=== PATIENT | female | born 1995 | race African-American/Black ===

== ENCOUNTER 2017-12-05 16:44 | Emergency (ER) | payer OTHER, SELFPAY ==
[2017-12-05 18:50] LABS: #Lymphocytes 2.3 thou/uL (1.20-3.40); #Monocytes 0.6 thou/uL (0.11-0.59); #Neutrophils 5.9 thou/uL (1.40-6.50); %Basophils 0.4 % (0.0-1.0); %Eosinophils 0.5 % (0.0-10.0); %Lymphocytes 25.5 % (28.0-48.0); %Monocytes 6.6 % (0.0-4.0); %Neutrophils 66.9 % (31.0-61.0); Hemoglobin 11.7 g/dL (12.0-16.0); Mean Corpuscular HGB CONC 31.1 g/dL (32.0-36.0); Mean Corpuscular Volume 83.8 fl (77.0-87.0); Mean Platelet Volume 8.2 fL (7.4-10.4); Platelet Count 363 thou/uL (130-400); RBC Distribution Width 13.8 % (11.5-14.5); Red Blood Cell (RBC) Count 4.51 mill/uL (4.00-5.20); White Blood Cell (WBC) Count 8.9 thou/uL (4.8-10.8)
[2017-12-05 19:06] LABS: ALT (SGPT) 14 U/L (8-55); AST (SGOT) 17 U/L (5-34); Acetaminophen Less than 6.0 mcg/mL (10.0-30.0); Albumin 4.5 g/dL (3.5-5.0); Alcohol Less than 10 mg/dL (Less than 10); Alkaline Phosphatase 65 U/L (40-150); Anion Gap 11 mmol/L (10-20); BUN (Urea Nitrogen) 12 mg/dL (7.0-18.7); Bilirubin, Total 0.2 mg/dL (0.2-1.2); CK (CPK) 74 U/L (29-168); Calc. Creatinine Clearance 0 mL/min (70-130); Calcium 10.1 mg/dL (7.8-10.44); Carbon Dioxide 27 mmol/L (22-29); Chloride 105 mmol/L (98-107); Estimated GFR-MDRD 86; Globulin 3.8 g/dL (2.4-3.5); Glucose 78 mg/dL (70-105); Potassium 4.3 mmol/L (3.5-5.1); Protein, Total 8.3 g/dL (6.0-8.3); Salicylate Less than 8.0 mg/dL (15.0-30.0); Sodium 139 mmol/L (136-145)
[2017-12-05 19:58] LABS: Bilirubin Negative (Negative); Blood, Urine Negative (Negative); Clarity CLEAR (Clear); Glucose, Urine (Dipstick) Negative (Negative); Leukocyte Trace (Negative); Nitrite Negative (Negative); Protein, Urine (Dipstick) Negative (Neg-Trace); Specific Gravity, Urine 1.024 (1.002-1.036); Urobilinogen 0.2 mg/dL (0.2-1.0); pH, Urine 5.5 (5.0-9.0)
[2017-12-05 19:59] LABS: Pregnancy Test - Urine (BHCG) Negative (Negative); Pregu Control Background? CLEAR/WHITE (CLR/WHITE); Pregu Control Bar Appear? YES (CONTROL BAR); Specific Gravity 1.024 (1.002-1.036)
[2017-12-05 20:02] LABS: Bacteria/HPF None Seen HPF (None Seen); Hyaline Casts/LPF 0-3 HYALINE CAST LPF (0-3 Hyaline); RBC/HPF 0-3 HPF (0-3); Squamous Epithelial None Seen HPF (0-3); WBC/HPF 0-3 HPF (0-3)
[2017-12-05 20:11] LABS: Amphetamine Not Detected (NotDetected); Barbiturates Screen Not Detected (NotDetected); Benzodiazepine Screen Not Detected (NotDetected); Cocaine Metabolite Screen Not Detected (NotDetected); Medtox Control Line Valid? VALID (VALID); Medtox Reader # READER 4; Methadone Not Detected (NotDetected); Methamphetamine Not Detected (NotDetected); Opiate Screen Not Detected (NotDetected); Oxycodone Screen Not Detected (NotDetected); Phencyclidine (PCP) Not Detected (NotDetected); THC/Cannabinoid Screen Detected (NotDetected); Tricyclic Screen Not Detected (NotDetected)
== END 2017-12-05 22:25 | disposition home or self-care (01) ==
LOC: ERS 16:44
DX: F43.10 Post-traumatic stress disorder, unspecified (principal); F41.9 Anxiety disorder, unspecified
CPT/HCPCS: 36415; 80053; 80306; 80307; 81003; 81015; 81025; 82550; 84443; 85025; 99283

== ENCOUNTER 2018-07-04 14:22 | Emergency (ER) | payer SELFPAY ==
[2018-07-04 15:44] LABS: #Eosinphils 0.1 thou/uL (0.0-0.7); #Lymphocytes 2.4 thou/uL (1.20-3.40); #Monocytes 1.1 thou/uL (0.11-0.59); #Neutrophils 7.8 thou/uL (1.40-6.50); %Basophils 0.2 % (0.0-1.0); %Eosinophils 0.8 % (0.0-10.0); %Lymphocytes 21.4 % (21.0-51.0); %Monocytes 9.3 % (0.0-10.0); %Neutrophils 68.3 % (42.0-75.0); Hemoglobin 12.5 g/dL (12.0-16.0); Mean Corpuscular Hemoglobin 26.8 pg (27.0-31.0); Mean Corpuscular Volume 86.2 fL (78.0-98.0); Mean Platelet Volume 8.6 fL (7.4-10.4); Platelet Count 299 thou/uL (130-400); RBC Distribution Width 14.5 % (11.5-14.5); Red Blood Cell (RBC) Count 4.67 mill/uL (4.20-5.40); White Blood Cell (WBC) Count 11.4 thou/uL (4.8-10.8)
[2018-07-04 16:06] LABS: ALT (SGPT) 11 U/L (8-55); AST (SGOT) 18 U/L (5-34); Albumin 4.5 g/dL (3.5-5.0); Alkaline Phosphatase 67 U/L (40-150); Anion Gap 11 mmol/L (10-20); BUN (Urea Nitrogen) 11 mg/dL (7.0-18.7); Bilirubin, Total 0.3 mg/dL (0.2-1.2); Calc. Creatinine Clearance 0 mL/min (70-130); Calcium 9.7 mg/dL (7.8-10.44); Carbon Dioxide 26 mmol/L (22-29); Chloride 107 mmol/L (98-107); Estimated GFR-MDRD Greater than 90; Globulin 3.8 g/dL (2.4-3.5); Glucose 75 mg/dL (70-105); Potassium 4.2 mmol/L (3.5-5.1); Protein, Total 8.3 g/dL (6.0-8.3); Sodium 140 mmol/L (136-145)
[2018-07-04 17:34] LABS: Bilirubin Negative (Negative); Blood, Urine Negative (Negative); Clarity CLEAR (Clear); Glucose, Urine (Dipstick) Negative (Negative); Leukocyte Negative (Negative); Nitrite Negative (Negative); Protein, Urine (Dipstick) Negative (Neg-Trace); Specific Gravity, Urine 1.011 (1.002-1.036)
[2018-07-04 17:36] LABS: Pregnancy Test - Urine (BHCG) Negative (Negative); Pregu Control Background? CLEAR/WHITE (CLR/WHITE); Pregu Control Bar Appear? YES (CONTROL BAR); Specific Gravity 1.011 (1.002-1.036)
--- NOTE | 2018-07-04 17:57 | ULT ---
TRANSABDOMINAL PELVIC ULTRASOUND: 07/04/18 INDICATION: History of pelvic pain. FINDINGS: The uterus measures 5.9 x 2.5 x 4 cm. Endometrial stripe measures 4 mm. Right ovary measures 2.7 x 1.6 x 2 cm. Spectral doppler evaluation demonstrates normal flow to the ri ght ovary. Left ovary measures 1.5 x 2.7 x 1.2 cm. Spectral doppler evaluation of the left ovary demonstrates no rmal flow. No free fluid is evident. IMPRESSION: No acute abnormality. POS: TERI
== END 2018-07-04 18:16 | disposition home or self-care (01) ==
LOC: ERS 14:22
DX: R10.33 Periumbilical pain (principal); R11.0 Nausea; F41.9 Anxiety disorder, unspecified
CPT/HCPCS: 36415; 76856; 80053; 81003; 81025; 85025

== ENCOUNTER 2019-05-15 09:27 | Emergency (ER) | payer SELFPAY ==
[2019-05-15 10:18] LABS: #Lymphocytes 2.2 thou/uL (1.20-3.40); #Monocytes 0.9 thou/uL (0.11-0.59); #Neutrophils 7.3 thou/uL (1.40-6.50); %Basophils 0.4 % (0.0-1.0); %Eosinophils 0.3 % (0.0-10.0); %Monocytes 8.1 % (0.0-10.0); %Neutrophils 70.1 % (42.0-75.0); Hemoglobin 12.7 g/dL (12.0-16.0); Mean Corpuscular HGB CONC 31.9 g/dL (32.0-36.0); Mean Corpuscular Hemoglobin 27.5 pg (27.0-31.0); Mean Corpuscular Volume 86.1 fL (78.0-98.0); Platelet Count 253 thou/uL (130-400); RBC Distribution Width 14.2 % (11.5-14.5); Red Blood Cell (RBC) Count 4.63 mill/uL (4.20-5.40); White Blood Cell (WBC) Count 10.4 thou/uL (4.8-10.8)
[2019-05-15 10:29] LABS: BHCG - Serum Negative (NEGATIVE); Pregs Control Background? CLEAR/WHITE (CLR/WHITE); Pregs Control Bar Appear? YES (CONTROL BAR)
[2019-05-15] MEDS ORDERED: Morphine 4 MG/ML VIAL ONE (10:37)
[2019-05-15] MEDS ORDERED: Ondansetron PF 4 MG/2 ML Vial ONE (10:37)
[2019-05-15 10:38] LABS: Bilirubin Negative (Negative); Blood, Urine 3+ (Negative); Clarity Turbid (Clear); Glucose, Urine (Dipstick) Normal (Negative); Leukocyte 25 Leu/uL (Negative); Nitrite Negative (Negative); Protein, Urine (Dipstick) 100 mg/dL (Neg-Trace); RBC/HPF Greater than 50 HPF (0-3); Urobilinogen 3 mg/dL (Less than 2)
[2019-05-15 10:44] LABS: ALT (SGPT) 12 U/L (8-55); AST (SGOT) 17 U/L (5-34); Albumin 4.7 g/dL (3.5-5.0); Alkaline Phosphatase 62 U/L (40-150); Anion Gap 14 mmol/L (10-20); BUN (Urea Nitrogen) 14 mg/dL (7.0-18.7); Bilirubin, Total 0.3 mg/dL (0.2-1.2); Calc. Creatinine Clearance 0 mL/min (70-130); Calcium 10.1 mg/dL (7.8-10.44); Carbon Dioxide 23 mmol/L (22-29); Chloride 108 mmol/L (98-107); Estimated GFR-MDRD 81; Globulin 3.2 g/dL (2.4-3.5); Glucose 97 mg/dL (70-105); Lipase 44 U/L (8-78); Potassium 3.4 mmol/L (3.5-5.1); Protein, Total 7.9 g/dL (6.0-8.3); Sodium 142 mmol/L (136-145)
[2019-05-15 10:46] LABS: Bacteria/HPF 2+ HPF (None Seen)
[2019-05-15 10:47] LABS: Calcium Oxalate Crystals Rare HPF (None Seen)
--- NOTE | 2019-05-15 10:54 | CT ---
CT of abdomen and pelvis: 05/15/2019 COMPARISON: None HISTORY: Abdominal pain TECHNIQUE: Axial CT imaging at 5 mm intervals from lung bases through pubic symphysis without contras t. Coronal reformatted imaging obtained. FINDINGS: Lack of contrast media limits assessment of the viscera, bowel, vascular structures, and fo r lymphadenopathy. The imaged lung bases appear unremarkable. No free intraperitoneal air noted. There is a low-density lesion within the anterior aspect of the left lobe of the liver measuring 2.9 cm. Hounsfield units demonstrate soft tissue attenuation. Limited assessment of the gallbladder appears grossly unremarkable. The spleen, pancreas, adrenal gla nds, and kidneys demonstrate no acute findings. No nephrolithiasis or hydronephrosis is noted on either side. Limited assessment of the bowel without oral contrast media appears grossly unremarkable. The appendi x is within normal limits. Review of the osseous structures demonstrates no worrisome lytic or blastic bone lesions. IMPRESSION: No nephrolithiasis or obstructive uropathy. 2.9 cm mass within the left lobe of the liver for which a follow-up nonemergent MRI of the abdomen is advised MELINDA Sheppard
[2019-05-19 18:22] LABS: Chlamydia by PCR Not Detected (NotDetected); GC by PCR Not Detected (NotDetected)
== END 2019-05-15 13:11 | disposition home or self-care (01) ==
LOC: ERS 09:27
DX: N12 Tubulo-interstitial nephritis, not specified as acute or chronic (principal); F41.9 Anxiety disorder, unspecified
CPT/HCPCS: 36415; 74176; 80053; 81003; 81015; 83605; 83690; 84703; 85025; 87480; 87491; 87510; 87591; 87660; 94760; 96361; 96374; 96375; J2270; J2405

== ENCOUNTER 2020-10-01 10:39 | Emergency (ER) | payer SELFPAY ==
[2020-10-01 18:03] LABS: SARS-CoV-2 PCR by NAA Not Detected (NotDetected)
== END 2020-10-01 11:12 | disposition home or self-care (01) ==
LOC: ERS 10:39
DX: R43.9 Unspecified disturbances of smell and taste (principal); R05 Cough; R68.83 Chills (without fever); Z20.822 Contact with and (suspected) exposure to COVID-19
CPT/HCPCS: 87635; 99283; U0003; U0005

== ENCOUNTER 2020-11-17 21:46 | Emergency (ER) | payer SELFPAY ==
[2020-11-17 22:24] LABS: #Basophils 0.1 thou/uL (0.0-0.2); #Eosinphils 0.1 thou/uL (0.0-0.7); #Lymphocytes 3.6 thou/uL (1.20-3.40); #Monocytes 1.1 thou/uL (0.11-0.59); #Neutrophils 7.8 thou/uL (1.40-6.50); %Basophils 0.7 % (0.0-1.0); %Eosinophils 0.8 % (0.0-10.0); %Lymphocytes 28.4 % (21.0-51.0); %Monocytes 8.8 % (0.0-10.0); %Neutrophils 61.3 % (42.0-75.0); Hemoglobin 9.5 g/dL (12.0-16.0); Mean Corpuscular HGB CONC 30.8 g/dL (32.0-36.0); Mean Corpuscular Volume 78.1 fL (78.0-98.0); Platelet Count 256 thou/uL (130-400); RBC Distribution Width 14.3 % (11.5-14.5); Red Blood Cell (RBC) Count 3.94 mill/uL (4.20-5.40); White Blood Cell (WBC) Count 12.6 thou/uL (4.8-10.8)
[2020-11-17 22:36] LABS: BHCG - Serum Negative (NEGATIVE); Pregs Control Background? CLEAR/WHITE (CLR/WHITE); Pregs Control Bar Appear? YES (CONTROL BAR)
[2020-11-17 22:39] LABS: ALT (SGPT) 13 U/L (8-55); AST (SGOT) 19 U/L (5-34); Albumin 4.3 g/dL (3.5-5.0); Alkaline Phosphatase 62 U/L (40-110); Anion Gap 14 mmol/L (10-20); BUN (Urea Nitrogen) 12 mg/dL (7.0-18.7); Bilirubin, Total 0.2 mg/dL (0.2-1.2); Calc. Creatinine Clearance 0 mL/min (70-130); Carbon Dioxide 22 mmol/L (22-29); Chloride 105 mmol/L (98-107); Globulin 3.4 g/dL (2.4-3.5); Glucose 138 mg/dL (70-105); Protein, Total 7.7 g/dL (6.0-8.3); Sodium 137 mmol/L (136-145)
== END 2020-11-17 23:02 | disposition home or self-care (01) ==
LOC: ERS 21:46
DX: R56.9 Unspecified convulsions (principal)
CPT/HCPCS: 36415; 80053; 84146; 84703; 85025; 93005

== ENCOUNTER 2022-01-31 23:34 | Emergency (ER) | payer SELFPAY ==
[2022-02-01] MEDS ORDERED: Haloperidol Lactate 5 MG/ML VIAL ONE (00:30)
[2022-02-01] MEDS ORDERED: Mag-Al 1200 mg/1200 mg/30 ML UDCUP ONE (00:39)
[2022-02-01] MEDS ORDERED: Lidocaine Viscous Sol 2% 15 ml UD Cup ONE (00:39)
[2022-02-01 01:27] LABS: Bilirubin Negative (Negative); Blood, Urine Negative (Negative); Clarity Clear (Clear); Glucose, Urine (Dipstick) Normal (Negative); Ketone, Urine 150 mg/dL (Negative); Leukocyte Negative Leu/uL (Negative); Nitrite Negative (Negative); Protein, Urine (Dipstick) 20 mg/dL (Neg-Trace); pH, Urine 6.5 (5.0-9.0)
[2022-02-01 01:29] LABS: Pregnancy Test - Urine (BHCG) Negative (Negative); Pregu Control Background? CLEAR/WHITE (CLR/WHITE); Pregu Control Bar Appear? YES (CONTROL BAR)
[2022-02-01] MEDS ORDERED: Ondansetron ODT 8 MG TAB ONE (01:33)
== END 2022-02-01 02:14 | disposition home or self-care (01) ==
LOC: ERS 23:34
DX: R11.0 Nausea (principal); R56.9 Unspecified convulsions
CPT/HCPCS: 81003; 81025; 96372; 99284; J1630; Q0162

== ENCOUNTER 2022-12-24 06:05 | Emergency (ER) | payer SELFPAY ==
[2022-12-24] MEDS ORDERED: Ondansetron ODT 4 MG TAB ONE (06:10)
== END 2022-12-24 06:25 | disposition left against medical advice (07) ==
LOC: ERS 06:05
DX: Z53.29 Procedure and treatment not carried out because of patient's decision for other reasons (principal)
CPT/HCPCS: Q0162

== ENCOUNTER 2022-12-26 14:00 | Emergency (ER) | payer MEDICAID, SELFPAY ==
[2022-12-26] MEDS ORDERED: Promethazine 25 MG TAB ONE (14:26)
[2022-12-26] MEDS ORDERED: Promethazine HCl 6.25 MG in Sodium Chloride 0.9% 50 ML IVPB SCH (14:45)
== END 2022-12-26 16:13 | disposition home or self-care (01) ==
LOC: ERS 14:00
DX: R11.2 Nausea with vomiting, unspecified (principal)
CPT/HCPCS: 96361; 96365; J2550; Q0169

== ENCOUNTER 2022-12-27 04:02 | Emergency (ER) | payer SELFPAY ==
[2022-12-27] MEDS ORDERED: diphenhydrAMINE 50 MG/ML VIAL ONE (04:43)
[2022-12-27] MEDS ORDERED: Ondansetron PF 4 MG/2 ML Vial ONE (04:43)
[2022-12-27] MEDS ORDERED: Haloperidol Lactate 5 MG/ML VIAL ONE (04:43)
[2022-12-27] MEDS ORDERED: Metoclopramide HCl 10 MG/2 ML VIAL ONE (04:43)
[2022-12-27 05:04] LABS: #Lymphocytes 1.7 thou/uL (1.20-3.40); #Monocytes 1.1 thou/uL (0.11-0.59); #Neutrophils 11.4 thou/uL (1.40-6.50); %Basophils 0.1 % (0.0-1.0); %Eosinophils 0.3 % (0.0-10.0); %Lymphocytes 11.6 % (21.0-51.0); %Monocytes 7.5 % (0.0-10.0); %Neutrophils 80.5 % (42.0-75.0); Hemoglobin 12.7 g/dL (12.0-16.0); Mean Corpuscular HGB CONC 31.3 g/dL (32.0-36.0); Mean Corpuscular Hemoglobin 27.5 pg (27.0-31.0); Mean Corpuscular Volume 87.9 fl (78.0-98.0); Mean Platelet Volume 9.4 fL (7.4-10.4); Platelet Count 217 10x3/uL (130-400); Red Blood Cell (RBC) Count 4.61 mill/uL (4.20-5.40); White Blood Cell (WBC) Count 14.2 10x3/uL (4.8-10.8)
[2022-12-27 05:08] LABS: BHCG - Serum Negative (NEGATIVE); Pregs Control Background? CLEAR/WHITE (CLR/WHITE); Pregs Control Bar Appear? YES (CONTROL BAR)
[2022-12-27 05:34] LABS: ALT (SGPT) 18 U/L (8-55); AST (SGOT) 21 U/L (5-34); Albumin 4.2 g/dL (3.5-5.0); Alkaline Phosphatase 56 U/L (40-110); Anion Gap 16 mmol/L (10-20); BUN (Urea Nitrogen) 7 mg/dL (7.0-18.7); Bilirubin, Total 0.4 mg/dL (0.2-1.2); Calc. Creatinine Clearance 0 mL/min (70-130); Calcium 9.5 mg/dL (7.8-10.44); Carbon Dioxide 21 mmol/L (22-29); Chloride 104 mmol/L (98-107); Estimated GFR 96; Globulin 3.2 g/dL (2.4-3.5); Glucose 111 mg/dL (70-105); Lipase 27 U/L (8-78); Potassium 2.8 mmol/L (3.5-5.1); Protein, Total 7.4 g/dL (6.0-8.3); Sodium 138 mmol/L (136-145)
[2022-12-27] MEDS ORDERED: Potassium Chloride 20 MEQ TAB ONE (05:57)
== END 2022-12-27 06:07 | disposition home or self-care (01) ==
LOC: ERS 04:02
DX: R11.2 Nausea with vomiting, unspecified (principal); F12.10 Cannabis abuse, uncomplicated
CPT/HCPCS: 36415; 80053; 83690; 84703; 85025; 96365; 96375; J1200; J1630; J2405; J2765

== ENCOUNTER 2025-08-03 09:23 | Observation (INO) | payer SELFPAY ==
[2025-08-03] MEDS ORDERED: Iopamidol 370 76% 100 ML VIAL ONE (09:37)
[2025-08-03] MEDS ORDERED: Ondansetron PF 4 MG/2 ML Vial ONE ×2 (10:07→12:33)
[2025-08-03 10:46] LABS: Bacteria/HPF None Seen HPF (None Seen); CAUTI Indications for Culture Pelvic or flank pain; Glucose, Urine (Dipstick) Normal (Negative); Leukocyte Negative Leu/uL (Negative); Protein, Urine (Dipstick) 50 mg/dL (Neg-Trace); Specific Gravity, Urine 1.034 (1.002-1.036); WBC/HPF 0-3 HPF (0-3)
[2025-08-03 10:48] LABS: Urine Culture Reflex No No
[2025-08-03 10:50] LABS: BHCG - Serum Negative (NEGATIVE); Pregs Control Background? CLEAR/WHITE (CLR/WHITE); Pregs Control Bar Appear? YES (CONTROL BAR)
[2025-08-03 10:56] LABS: ALT (SGPT) 26 U/L (Less than 34); AST (SGOT) 38 U/L (11-34); Albumin 4.4 g/dL (3.1-4.5); Alkaline Phosphatase 78 U/L (40-110); Anion Gap 15 mmol/L (10-20); BUN (Urea Nitrogen) 9 mg/dL (7.0-18.7); Bilirubin, Total 0.4 mg/dL (0.3-1.2); Calc. Creatinine Clearance 0 mL/min (70-130); Calcium 9.8 mg/dL (7.8-10.44); Carbon Dioxide 24 mmol/L (22-29); Chloride 106 mmol/L (98-107); Globulin 3.9 g/dL (2.4-3.5); Glucose 129 mg/dL (70-105); Lipase 13 U/L (8-78); Potassium 3.7 mmol/L (3.5-5.1); Sodium 141 mmol/L (136-145)
[2025-08-03 10:59] LABS: #Basophils 0.03 10x3/uL (0.0-0.2); #Eosinophils Less than 0.03 10x3/uL (0.0-0.7); #Monocytes 0.60 10x3/uL (0.11-0.59); #Neutrophils 13.97 10x3/uL (1.40-6.50); %Basophils 0.2 % (0.0-1.0); %Eosinophils 0.0 % (0.0-10.0); %Lymphocytes 6.1 % (21.0-51.0); %Monocytes 3.8 % (0.0-10.0); %Neutrophils 89.5 % (42.0-75.0); Hematocrit 43.0 % (36.0-47.0); Hemoglobin 13.1 g/dL (12.0-16.0); Mean Corpuscular Hemoglobin 25.6 pg (27.0-31.0); Mean Corpuscular Volume 84.0 fL (78.0-98.0); Platelet Count 311 10x3/uL (130-400); Red Blood Cell (RBC) Count 5.12 mill/uL (4.20-5.40); White Blood Cell (WBC) Count 15.62 10x3/uL (4.8-10.8)
[2025-08-03] MEDS ORDERED: Ketorolac Tromethamine 30 MG (1 mL) VIAL IVP PRN (13:01)
[2025-08-03] MEDS ORDERED: Ondansetron PF 4 MG/2 ML Vial IVP PRN (13:03)
[2025-08-03] MEDS ORDERED: Electrolyte Replacement Protocol 1 EACH FS SCH (13:15)
[2025-08-03 14:28] LABS: Magnesium 1.7 mg/dL (1.6-2.6)
[2025-08-03] MEDS ORDERED: Potassium Chloride 20 MEQ in Premix 1 BAG IVPB PRN (15:00)
[2025-08-03] MEDS ORDERED: PHOS-NAK 1 PKT PACK PO PRN (15:00)
[2025-08-03] MEDS ORDERED: metroNIDAZOLE 500 MG (100 mL) BAG ONE (15:38)
[2025-08-03 17:47] VITALS: BMI 34.7
[2025-08-03] MEDS: Ondansetron PF 4 MG/2 ML Vial IVP PRN (18:33)
[2025-08-03] MEDS: Famotidine 20 MG TAB PO SCH (21:38)
[2025-08-04] MEDS: Acetaminophen 325 MG TAB PO PRN (02:22)
[2025-08-04 04:47] LABS: #Basophils Less than 0.03 10x3/uL (0.0-0.2); #Eosinophils Less than 0.03 10x3/uL (0.0-0.7); #Monocytes 1.13 10x3/uL (0.11-0.59); #Neutrophils 9.82 10x3/uL (1.40-6.50); %Basophils 0.2 % (0.0-1.0); %Eosinophils 0.2 % (0.0-10.0); %Lymphocytes 11.5 % (21.0-51.0); %Monocytes 9.1 % (0.0-10.0); %Neutrophils 78.7 % (42.0-75.0); Hematocrit 37.8 % (36.0-47.0); Hemoglobin 11.5 g/dL (12.0-16.0); Mean Corpuscular Hemoglobin 26.0 pg (27.0-31.0); Mean Corpuscular Volume 85.3 fL (78.0-98.0); Platelet Count 233 10x3/uL (130-400); Red Blood Cell (RBC) Count 4.43 mill/uL (4.20-5.40); White Blood Cell (WBC) Count 12.47 10x3/uL (4.8-10.8)
[2025-08-04 05:12] LABS: Anion Gap 9 mmol/L (10-20); BUN (Urea Nitrogen) 6 mg/dL (7.0-18.7); Calc. Creatinine Clearance 130 mL/min (70-130); Calcium 8.5 mg/dL (7.8-10.44); Carbon Dioxide 24 mmol/L (22-29); Chloride 111 mmol/L (98-107); Glucose 100 mg/dL (70-105); Magnesium 2.0 mg/dL (1.6-2.6); Potassium 3.3 mmol/L (3.5-5.1); Sodium 141 mmol/L (136-145)
[2025-08-04] MEDS ORDERED: Potassium Bicarbonate/Cit Ac 20 MEQ TAB PO PRN (08:00)
[2025-08-04] MEDS: Potassium Bicarbonate/Cit Ac 20 MEQ TAB PER TUBE PRN (10:23)
[2025-08-04] MEDS: Ciprofloxacin 500 MG TAB PO SCH (10:23)
[2025-08-04] MEDS: Magnesium 2 GM/50 ML(in water) 2 GM in Premix 1 BAG IVPB PRN (10:24)
[2025-08-04 17:01] VITALS: BP 135/86; TEMP 98.4
[2025-08-04] MEDS ORDERED: Ciprofloxacin 500 MG TAB PO SCH (20:00)
[2025-08-06] MEDS ORDERED: FLU (Fluarix Triv) 25-26 (6MOS UP)/PF 45 MCG/0.5 ML Syringe IM ONE (09:00)
== END 2025-08-04 16:55 | disposition home or self-care (01) ==
LOC: ERS 09:23 → ERHOLD 13:34 → T4-B 17:25
PROVIDERS: ADMIT Internal Medicine; ATTEND Family Medicine
DX: K52.9 Noninfective gastroenteritis and colitis, unspecified (principal)
CPT/HCPCS: 36415; 74177; 80048; 80053; 81001; 83605; 83690; 83735; 84703; 85025; 96361; 96365; 96375; 96376; J2270; J2405; J2543; J2550; J3475; J7030; Q9967